=== PATIENT | male | born 1955 | race Caucasian/White ===

== ENCOUNTER 2017-07-28 17:15 | Emergency (ER) | payer OTHER ==
[~2017-07-28] VITALS: Ht 167.6 cm; Wt 77.1 kg
[2017-07-28 17:20] VITALS: BP 130/84
--- NOTE | 2017-07-28 17:22 | NUR ---
PT BIBA ALS FOR DIZZINESS TO BED 2
--- NOTE | 2017-07-28 18:01 | NUR ---
PATIENT PRESENTS TO ED WITH DIZZINESS . PT SPEECH IS DELAYED AND DIFFICULT TO UNDERSTAND . DENIES N/V/D; SKIN IS PINK/WARM/DRY; AAOX4; PATIENT STATES PAIN OF 4/10 GENERALIZED AT THIS TIME; BEDRAILS UP X2; BED DOWN. ER MADE AWARE OF PT STATUS. Addendum: 07/28/17 at 1826 by [employer] PATIENT PRESENTS TO ER ZACHERY. PATIENT STATES HE WAS AT THE [employer] [place] AND DOES NOT REMEMBER ANYTHING AFTER THAT. PATIENT COMPLAINS OF DIZZINESS AND GENERALIZED WEAKNESS. SPEECH IS DELAYED AND SLURRED. PATIENT NEURO ASSESSMENT WITHIN NORMAL LIMITS. 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 PATIENT UNABLE TO VERBALIZE CONTACT INFORMATION FOR EMERGENCY CONTACT. HEP LOCK WAS PLACED IN RIGHT FOREARM. PATIENT TOLERATED WELL.
[2017-07-28 18:34] LABS: BASOPHILS # (AUTO) 0.1 K/uL (0.00-0.22); EOSINOPHILS # (AUTO) 0.4 K/uL (0-0.4); EOSINOPHILS % (AUTO) 6.2 % (0.0-4.0); HEMATOCRIT 36.2 % (36-52); HEMOGLOBIN 12.5 g/dL (12.0-18.0); LYMPHOCYTES # (AUTO) 1.4 K/uL (2.0-11.5); LYMPHOCYTES % (AUTO) 23.4 % (20.5-51.1); MEAN CORPUSCULAR HEMOGLOBIN 31 pg (27-31); MEAN CORPUSCULAR HGB CONC 35 g/dL (33-37); MEAN CORPUSCULAR VOLUME 89.4 fL (80-94); MONOCYTES # (AUTO) 0.5 K/uL (0.8-1.0); MONOCYTES % (AUTO) 7.8 % (1.7-9.3); NEUTROPHILS # (AUTO) 3.7 K/uL (1.8-7.7); NEUTROPHILS % (AUTO) 60.6 % (42.2-75.2); PLATELET COUNT (AUTO) 241 K/uL (140-450); RED BLOOD CELL COUNT(AUTO) 4.05 MIL/uL (4.20-6.10); RED CELL DISTRIBUTION WIDTH 13.5 % (11.6-13.7); WHITE BLOOD COUNT (AUTO) 6.1 K/uL (4.8-10.8)
[2017-07-28] MEDS ORDERED: NACL 0.9% 1,000 ML IV ONE (18:45)
[2017-07-28 18:51] LABS: APPEARANCE,URINE CLEAR (CLEAR); BILIRUBIN,URINE NEGATIVE (NEGATIVE); BLOOD, URINE NEGATIVE (NEGATIVE); COLOR,URINE YELLOW (YELLOW); LEUKOCYTE ESTERASE ,URINE NEGATIVE (NEGATIVE); NITRITE, URINE NEGATIVE (NEGATIVE); PH,URINE 5.5 (5.0-9.0); UGLUCOSE NEGATIVE (NEGATIVE)
[2017-07-28 18:51] LABS: ANION GAP 11.6 (8-16); CARBON DIOXIDE 27.7 mmol/L (21-32); CREATININE 1.1 mg/dL (0.7-1.3); POTASSIUM 3.3 mmol/L (3.5-5.1)
[2017-07-28 18:53] LABS: ALBUMIN 3.4 g/dL (3.4-5.0); TOTAL BILIRUBIN 0.5 mg/dL (0.0-1.0)
[2017-07-28 18:58] LABS: BARBITURATE, URINE NEG. ng/ml (NEG <=200); BENZODIAZEPINE, URINE NEG. ng/mL (NEG <=200); COCAINE, URINE NEG. ng/mL (NEG <=300); OPIATE, URINE NEG. ng/mL (NEG <=2000); PHENCYCLIDINE SCREEN,URINE NEG. ng/mL (NEG <=25)
[2017-07-28 19:00] LABS: CREATINE KINASE MB 2.9 ng/mL (0-3.6)
--- NOTE | 2017-07-28 19:00 | NUR ---
RECEIVED REPORT FROM ARAMIS GERMAIN. TRANSFER OF CARE THIS TIME.
[2017-07-28 19:16] LABS: CANNABINOID, URINE POSITIVE ng/mL (NEG <=50)
--- NOTE | 2017-07-28 19:45 | NUR ---
PATIENT CALLED FRIEND 'BULMARO.' PT WILL WAIT IN LOBBY. Addendum: 07/28/17 at 1953 by [employer] PATIENT CALLED FRIEND 'BULMARO.' PT WILL WAIT IN LOBBY FOR PICKUP.
[2017-07-28 19:47] VITALS: BP 118/62
--- NOTE | 2017-07-28 19:47 | NUR ---
Patient discharged with v/s stable. Written and verbal after care instructions given and explained. Patient verbalized understanding. Ambulatory with steady gait. All questions addressed prior to discharge. Advised to follow up with PMD.
== END 2017-07-28 19:47 | disposition home or self-care (01) ==
LOC: MED 17:15
DX: R41.82 Altered mental status, unspecified (principal); T40.7X5A Adverse effect of cannabis (derivatives), initial encounter; Y92.89 Other specified places as the place of occurrence of the external cause
CPT/HCPCS: 36415; 70450; 71045; 80053; 80305; 81003; 82550; 82553; 83880; 84484; 85025; 93005; 96360; 99285; J7030; Q0092

== ENCOUNTER 2018-12-08 07:24 | Emergency (ER) | payer OTHER ==
[~2018-12-08] VITALS: Ht 165.1 cm; Wt 73.5 kg
[2018-12-08 07:25] VITALS: BP 109/85
--- NOTE | 2018-12-08 07:45 | NUR ---
PATIENT AMBULATED TO BED 11 AT THIS TIME.
--- NOTE | 2018-12-08 08:25 | NUR ---
DR MEADOWS AT BEDSIDE
--- NOTE | 2018-12-08 08:36 | NUR ---
[facility] EMT AT BEDSIDE FOR EKG
--- NOTE | 2018-12-08 08:41 | NUR ---
XRAY AT BEDSIDE
--- NOTE | 2018-12-08 08:57 | NUR ---
LAB AT BEDSIDE
[2018-12-08 09:08] LABS: BASOPHILS % (AUTO) 0.8 % (0.0-2.0); EOSINOPHILS # (AUTO) 0.1 K/uL (0-0.4); EOSINOPHILS % (AUTO) 1.1 % (0.0-4.0); HEMATOCRIT 37.6 % (36-52); LYMPHOCYTES # (AUTO) 0.9 K/uL (2.0-11.5); MEAN CORPUSCULAR HEMOGLOBIN 31 pg (27-31); MEAN CORPUSCULAR HGB CONC 35 g/dL (33-37); MEAN CORPUSCULAR VOLUME 90.9 fL (80-94); MONOCYTES # (AUTO) 0.5 K/uL (0.8-1.0); MONOCYTES % (AUTO) 7.5 % (1.7-9.3); NEUTROPHILS # (AUTO) 4.7 K/uL (1.8-7.7); NEUTROPHILS % (AUTO) 76.6 % (42.2-75.2); PLATELET COUNT (AUTO) 188 K/uL (140-450); RED BLOOD CELL COUNT(AUTO) 4.14 MIL/uL (4.20-6.10); RED CELL DISTRIBUTION WIDTH 13.8 % (11.6-13.7); WHITE BLOOD COUNT (AUTO) 6.1 K/uL (4.8-10.8)
[2018-12-08 09:20] LABS: ANION GAP 8.8 (8-16); CREATININE 1.3 mg/dL (0.7-1.3); POTASSIUM 3.8 mmol/L (3.5-5.1)
--- NOTE | 2018-12-08 09:21 | NUR ---
pt at ct
[2018-12-08 09:32] LABS: CREATINE KINASE MB 2.4 ng/mL (0-3.6)
--- NOTE | 2018-12-08 09:33 | NUR ---
pt returned from ct
[2018-12-08 09:38] LABS: ALBUMIN 3.5 g/dL (3.4-5.0); FREE T4 (FREE THYROXINE) 0.93 ng/dL (0.76-1.46); THYROID STIMULATING HORMONE 1.16 uIU/mL (0.34-3.74); TOTAL BILIRUBIN 0.8 mg/dL (0.0-1.0)
--- NOTE | 2018-12-08 10:11 | NUR ---
rr even and unlabored. pt sleeping.
[2018-12-08 11:19] VITALS: BP 115/73
--- NOTE | 2018-12-08 11:19 | NUR ---
Patient discharged with v/s stable. Written and verbal after care instructions given and explained. Patient alert, oriented and verbalized understanding of instructions. Ambulatory with steady gait. All questions addressed prior to discharge. ID band removed. Patient advised to follow up with PMD. Rx of MECLIZINE HYDROCHLORIDE given. Patient educated on indication of medication including possible reaction and side effects. Opportunity to ask questions provided and answered. PT INSTRUCTED TO FOLLOW UP WITH PCP TOMORROW FOR RE-CHECK
[2018-12-08 11:35] LABS: BARBITURATE, URINE NEG. ng/ml (NEG <=200); BENZODIAZEPINE, URINE NEG. ng/mL (NEG <=200); CANNABINOID, URINE NEG. ng/mL (NEG <=50); COCAINE, URINE NEG. ng/mL (NEG <=300); OPIATE, URINE NEG. ng/mL (NEG <=2000); PHENCYCLIDINE SCREEN,URINE NEG. ng/mL (NEG <=25)
== END 2018-12-08 11:19 | disposition home or self-care (01) ==
LOC: MED 07:24
DX: R42 Dizziness and giddiness (principal)
CPT/HCPCS: 36415; 70450; 71045; 80053; 80305; 82550; 82553; 83690; 84439; 84443; 84484; 85025; 93005; 99284; Q0092